=== PATIENT | female | born 1945 | race Caucasian/White ===

== ENCOUNTER 2022-04-22 19:36 | Inpatient (IN) | payer OTHER, MEDICAID ==
[~2022-04-22] VITALS: Ht 154.9 cm; Wt 84.5 kg
[~2022-04-22 19:36] MED LIST: AMLO-489 PO; ARIP2TAB PO; ASPI81CH43 PO; ATEN-60 PO; CEPH-37 PO; CLOP75TA28 PO; DESI25TA PO; LISI-285 PO; PAR20T PO; POTA10TA51 PO; PRAV20TA3 PO
[2022-04-22] MEDS ORDERED: FUROSEMIDE 20 MG/2 ML VIAL IV ONE (20:00)
[2022-04-22 20:21] LABS: Basophils # (auto) 0.1 10 ^3/uL (0-0.2); Basophils % (auto) 0.5 % (0.0-2.0); Eosinophils # (auto) 0.2 10 ^3/uL (0-0.8); Eosinophils % (auto) 1.5 % (0.0-7.0); Hematocrit 47.3 % (36.0-46.0); Hemoglobin 15.8 g/dL (12.2-16.2); Lymphocytes # (auto) 6.3 10 ^3/uL (0.4-5.4); Lymphocytes % (auto) 48.9 % (10.0-50.0); Mean Corpuscular Hemoglobin 30.3 pg (28.0-32.0); Mean Corpuscular Hgb Conc. 33.5 g/dL (32.0-36.0); Mean Corpuscular Volume 90.6 fL (80.0-100.0); Monocytes # (auto) 0.5 10 ^3/uL (0-1.3); Monocytes % (auto) 3.7 % (0.0-12.0); Neutrophils # (auto) 5.8 10 ^3/uL (1.6-8.6); Neutrophils % (auto) 45.4 % (37.0-80.0); Nucleated Red Blood Cells % 0.1 %; Red Blood Cells 5.23 10^6/uL (4.0-5.20); Red Cell Distribution Width 14.3 % (11.8-14.3); White Blood Cell 12.8 10^3/uL (4.4-10.8)
[2022-04-22 20:29] LABS: Albumin 3.5 g/dL (3.4-5.0); Calcium 8.7 mg/dL (8.5-10.1); Magnesium 2.2 mg/dL (1.6-2.6); Potassium 4.2 mmol/L (3.5-5.1)
[2022-04-22 20:31] LABS: INR 0.93 (0.9-1.15); Partial Thromboplastin Time 23.3 sec (24.6-33.4)
[2022-04-22 20:33] LABS: BUN/Creatinine Ratio 17.9; Bilirubin, Total 0.4 mg/dL (0.2-1.0); Total Protein 7.1 g/dL (6.4-8.2)
[2022-04-22] MEDS ORDERED: HEPARIN SODIUM (PORCINE) 5000 UNITS/ML 1ML VIAL IV ONE (21:00)
[2022-04-22] MEDS ORDERED: HEPARIN DRIP/D5W 100UNITS/ML 250 ML IV SCH (21:00)
[2022-04-22 22:39] LABS: Urine Bacteria FEW /hpf (None Seen); Urine Blood Negative /uL (Negative); Urine Hyaline Cast FEW /lpf (0 - 2); Urine Specific Gravity 1.007 (1.001-1.035); Urine WBC 55 /hpf (0 - 5)
[2022-04-22 23:22] VITALS: BP 118/76
[2022-04-22] MEDS ORDERED: AZITHROMYCIN 500MG/ 250ML 250 ML IV ONE (23:30)
[2022-04-22] MEDS ORDERED: cefTRIAXone 1GM/50ML D5W 50 ML IV ONE (23:30)
[2022-04-22] MEDS ORDERED: GELATIN 1 SPONGE SIZE 50 TOP ONE (23:31)
[2022-04-22 23:47] VITALS: BP 134/98
[2022-04-23] VITALS (12 sets, daily range): BP systolic 103–154; BP diastolic 57–95
[2022-04-23] MEDS ORDERED: DexAMETHasone SOD PHOS 10MG/1ML VIAL INJ IV ONE (00:15)
[2022-04-23] MEDS ORDERED: diphenhdrAMINE HCL 50 MG/1 ML VL IV ONE (00:15)
[2022-04-23] MEDS ORDERED: DEXTROSE (50%) 50ML SYRG IV PRN ×2 (00:45→12:45)
[2022-04-23] MEDS ORDERED: IPRATROPIUM BROM 0.5 MG/2.5ML INH SOL NEB PRN (00:45)
[2022-04-23] MEDS ORDERED: ALBUTEROL SULF 2.5 MG/0.5ML(0.5%) NEB SOLN NEB PRN (00:45)
[2022-04-23] MEDS ORDERED: HYDROcodone-ACET 5/325MG TAB PO PRN (00:45)
[2022-04-23] MEDS ORDERED: DOCUSATE SOD 100 MG CAP PO PRN (00:45)
[2022-04-23] MEDS ORDERED: ONDANSETRON HCL 4 MG/2 ML VIAL IV PRN (00:45)
[2022-04-23] MEDS ORDERED: hydrALAZINE HCL 20 MG/ML VL IV PRN (02:30)
[2022-04-23 03:40] LABS: INR 0.98 (0.9-1.15); Partial Thromboplastin Time 33.2 sec (24.6-33.4)
[2022-04-23] MEDS ORDERED: HEPARIN SODIUM (PORCINE) 5000 UNITS/ML 1ML VIAL IV ONE (04:45)
[2022-04-23] MEDS ORDERED: MORPHINE SULFATE INJ 2 MG/ml SYRG IV PRN (04:45)
[2022-04-23] MEDS ORDERED: NITROGLYCERIN 0.4 MG SL TAB SL PRN (04:45)
[2022-04-23] MEDS ORDERED: HEPARIN DRIP/D5W 100UNITS/ML 250 ML IV SCH (04:45)
[2022-04-23 05:15] LABS: Basophils # (auto) 0 10 ^3/uL (0-0.2); Basophils % (auto) 0.2 % (0.0-2.0); Eosinophils # (auto) 0 10 ^3/uL (0-0.8); Hematocrit 47.9 % (36.0-46.0); Hemoglobin 15.7 g/dL (12.2-16.2); Lymphocytes # (auto) 1.8 10 ^3/uL (0.4-5.4); Mean Corpuscular Hemoglobin 29.9 pg (28.0-32.0); Mean Corpuscular Hgb Conc. 32.8 g/dL (32.0-36.0); Mean Corpuscular Volume 91.2 fL (80.0-100.0); Monocytes # (auto) 0.2 10 ^3/uL (0-1.3); Monocytes % (auto) 1.9 % (0.0-12.0); Neutrophils # (auto) 9.3 10 ^3/uL (1.6-8.6); Neutrophils % (auto) 81.9 % (37.0-80.0); Red Blood Cells 5.25 10^6/uL (4.0-5.20); Red Cell Distribution Width 14.2 % (11.8-14.3); White Blood Cell 11.3 10^3/uL (4.4-10.8)
[2022-04-23] MEDS: SODIUM CHLOR 0.9% PF (SALINE LOCK) 10ML VIAL/SYR IV SCH ×2 (06:10→21:47)
[2022-04-23] MEDS: ACCU-CHEK COMFORT CURVE STRIP VI SCH ×4 (06:33→21:48)
[2022-04-23] MEDS: InsuLIN REG 1unit/0.01ml Soln (100units/ml) SC SCH ×4 (06:35→22:00)
[2022-04-23 06:44] LABS: Alanine Aminotransferase 45 U/L (13-56); Albumin 3.1 g/dL (3.4-5.0); Alkaline Phosphatase 60 U/L (45-117); Anion Gap 11 (5-15); Aspartate Aminotransferase 74 U/L (15-37); BUN/Creatinine Ratio 28.6; Bilirubin, Total 0.4 mg/dL (0.2-1.0); Blood Urea Nitrogen 26 mg/dL (7-18); Calcium 8.2 mg/dL (8.5-10.1); Carbon Dioxide 21 mmol/L (21-32); Chloride 106 mmol/L (98-107); GFR African American 77 mL/min; GFR Non-African American 64 mL/min; Glucose 183 mg/dL (74-106); Potassium 4.9 mmol/L (3.5-5.1); Sodium 138 mmol/L (136-145); Total Protein 7.6 g/dL (6.4-8.2)
[2022-04-23] MEDS ORDERED: AZITHROMYCIN 500MG/ 250ML 250 ML IV SCH (10:00)
[2022-04-23] MEDS ORDERED: levoFLOXacin 500MG 100 ML IV SCH (10:00)
[2022-04-23] MEDS ORDERED: ONDANSETRON HCL 4 MG/2 ML VIAL IV ONE (10:30)
[2022-04-23] MEDS: ASPirin 81 mg TAB PO SCH (10:32)
[2022-04-23 11:49] LABS: Cholesterol 178 mg/dL (< 200); HDL Cholesterol 47 mg/dL (40-59); LDL Cholesterol 122 mg/dL (< 100); Triglycerides 93 mg/dL (< 150)
[2022-04-23 11:52] LABS: Partial Thromboplastin Time 73.9 sec (24.6-33.4)
[2022-04-23] MEDS ORDERED: fentaNYL CITRATE 100 MCG/2 ML VL ONE (12:21)
[2022-04-23] MEDS ORDERED: HEPARIN SODIUM (PORCINE) 5000 UNITS/ML 1ML VIAL ONE (12:21)
[2022-04-23] MEDS ORDERED: VERAPAMIL 2.5MG/ML INJ 2ML VIAL IV ONE (12:21)
[2022-04-23] MEDS ORDERED: ANGIOMAX 250 MG VIAL IV ONE (12:21)
[2022-04-23] MEDS ORDERED: LIDOCAINE 2%HCL (LOCAL ANESTH.) INJ 10ml MDV ONE (12:22)
[2022-04-23] MEDS ORDERED: SODIUM CHL 0.9% 0 ML ONE (12:22)
[2022-04-23] MEDS ORDERED: MIDAZOLAM HCL 2MG/2ML 2ml VIAL (1mg/ml) ONE (12:22)
[2022-04-23] MEDS ORDERED: IODIXANOL 320MG/ML 100ML BTL IV ONE ×2 (12:23→12:35)
[2022-04-23] MEDS ORDERED: FUROSEMIDE 40 MG/4 ML VIAL IV ONE (12:45)
[2022-04-23] MEDS ORDERED: FUROSEMIDE 20 MG/2 ML VIAL ONE (13:14)
[2022-04-23] MEDS ORDERED: methylPREDNISolone SOD SUCC 40 MG/ML VL IV SCH (14:00)
[2022-04-23] MEDS: ACETAMINOPHEN 325 MG TAB PO PRN (14:30)
[2022-04-23] MEDS ORDERED: InsuLIN REG 1unit/0.01ml Soln (100units/ml) SC SCH (22:00)
[2022-04-23] MEDS: ATORVASTATIN 20 MG TAB PO SCH (22:13)
[2022-04-24 05:00] VITALS: BP 109/55
[2022-04-24] MEDS: SODIUM CHLOR 0.9% PF (SALINE LOCK) 10ML VIAL/SYR IV SCH ×3 (06:08→20:48)
[2022-04-24] MEDS: ACCU-CHEK COMFORT CURVE STRIP VI SCH ×4 (06:08→20:48)
[2022-04-24] MEDS: InsuLIN REG 1unit/0.01ml Soln (100units/ml) SC SCH ×4 (06:10→20:55)
[2022-04-24 06:21] LABS: Potassium 3.7 mmol/L (3.5-5.1)
[2022-04-24 06:25] LABS: Albumin 3.4 g/dL (3.4-5.0); BUN/Creatinine Ratio 34.7; Calcium 8.9 mg/dL (8.5-10.1)
[2022-04-24 06:27] LABS: Basophils # (auto) 0 10 ^3/uL (0-0.2); Basophils % (auto) 0.3 % (0.0-2.0); Bilirubin, Total 0.8 mg/dL (0.2-1.0); Eosinophils # (auto) 0 10 ^3/uL (0-0.8); Eosinophils % (auto) 0.1 % (0.0-7.0); Hematocrit 44.4 % (36.0-46.0); Lymphocytes # (auto) 3.1 10 ^3/uL (0.4-5.4); Lymphocytes % (auto) 24.9 % (10.0-50.0); Mean Corpuscular Hemoglobin 30.3 pg (28.0-32.0); Mean Corpuscular Hgb Conc. 33.8 g/dL (32.0-36.0); Mean Corpuscular Volume 89.6 fL (80.0-100.0); Monocytes # (auto) 0.9 10 ^3/uL (0-1.3); Monocytes % (auto) 7.2 % (0.0-12.0); Neutrophils # (auto) 8.3 10 ^3/uL (1.6-8.6); Neutrophils % (auto) 67.5 % (37.0-80.0); Nucleated Red Blood Cells % 0.2 %; Red Blood Cells 4.95 10^6/uL (4.0-5.20); Red Cell Distribution Width 14.1 % (11.8-14.3); Total Protein 6.8 g/dL (6.4-8.2); White Blood Cell 12.3 10^3/uL (4.4-10.8)
[2022-04-24 08:44] VITALS: BP 138/61
[2022-04-24] MEDS: cefTRIAXone 1GM/50ML D5W 50 ML IV SCH (09:50)
[2022-04-24] MEDS: ASPirin 81 mg TAB PO SCH (09:51)
[2022-04-24] MEDS: FUROSEMIDE 40 MG/4 ML VIAL IV SCH (09:51)
[2022-04-24] MEDS ORDERED: AZITHROMYCIN 250 MG TAB PO SCH (10:00)
[2022-04-24] MEDS ORDERED: levoFLOXacin 250MG 50 ML IV SCH (10:00)
[2022-04-24] MEDS ORDERED: LISINOPRIL 5 MG TAB PO ONE (10:45)
[2022-04-24] MEDS ORDERED: CARVEDILOL 3.125 MG TAB PO ONE (10:45)
[2022-04-24 13:00] VITALS: BP 127/55
[2022-04-24 17:00] VITALS: BP 122/65
[2022-04-24] MEDS: ATORVASTATIN 20 MG TAB PO SCH (20:40)
[2022-04-24] MEDS: CARVEDILOL 3.125 MG TAB PO SCH (20:41)
[2022-04-24 22:00] VITALS: BP 96/64
[2022-04-24] MEDS: ACETAMINOPHEN 325 MG TAB PO PRN (22:34)
[2022-04-25 05:00] VITALS: BP 103/61
[2022-04-25] MEDS: SODIUM CHLOR 0.9% PF (SALINE LOCK) 10ML VIAL/SYR IV SCH (05:38)
[2022-04-25] MEDS: InsuLIN REG 1unit/0.01ml Soln (100units/ml) SC SCH ×2 (05:38→11:30)
[2022-04-25] MEDS: ACCU-CHEK COMFORT CURVE STRIP VI SCH ×2 (05:39→11:30)
[2022-04-25 06:12] LABS: Calcium 8.8 mg/dL (8.5-10.1); Potassium 3.4 mmol/L (3.5-5.1)
[2022-04-25] MEDS ORDERED: EMPAGLIFLOZIN 10 MG TAB PO SCH (07:00)
[2022-04-25 08:00] VITALS: BP 126/61
[2022-04-25] MEDS ORDERED: LISINOPRIL 5 MG TAB PO SCH (10:00)
[2022-04-25] MEDS: FUROSEMIDE 40 MG/4 ML VIAL IV SCH (10:04)
[2022-04-25] MEDS: cefTRIAXone 1GM/50ML D5W 50 ML IV SCH (10:04)
[2022-04-25] MEDS: ASPirin 81 mg TAB PO SCH (10:04)
[2022-04-25] MEDS: CARVEDILOL 3.125 MG TAB PO SCH (10:05)
[2022-04-25] MEDS ORDERED: CAR3125T PO (11:54)
[2022-04-25] MEDS ORDERED: FURO1TAB31 PO (11:54)
[2022-04-25] MEDS ORDERED: POTA-220 PO (11:54)
[2022-04-25] MEDS ORDERED: LISI-275 PO (11:54)
[2022-04-25] MEDS ORDERED: ASPI-325 PO (11:54)
[2022-04-25] MEDS ORDERED: EMPA1TAB PO (11:54)
[2022-04-25] MEDS ORDERED: ATOR20TA50 PO (11:54)
[2022-04-25 12:00] VITALS: BP 141/97
[2022-04-25] MEDS ORDERED: POTASSIUM CHL 20 Meq TABLET PO ONE (12:30)
[2022-04-25 13:34] VITALS: BP 138/61
== END 2022-04-25 15:30 | disposition home or self-care (01) | DRG 280 ==
LOC: ER 19:36 → EDBD 19:36 → TELE 04-23 04:35 → TELE-EAST 04-23 17:05
PROVIDERS: ADMIT Nurse Practitioner Family; ATTEND Internal Medicine
PROC: 4A023N7 Measurement of Cardiac Sampling and Pressure, Left Heart, Percutaneous Approach (ICD-10-PCS; principal; 2022-04-23)
PROC: B211YZZ Fluoroscopy of Multiple Coronary Arteries using Other Contrast (ICD-10-PCS; 2022-04-23)
PROC: B215YZZ Fluoroscopy of Left Heart using Other Contrast (ICD-10-PCS; 2022-04-23)
DX: I21.4 Non-ST elevation (NSTEMI) myocardial infarction (principal); I50.21 Acute systolic (congestive) heart failure; J96.01 Acute respiratory failure with hypoxia; N39.0 Urinary tract infection, site not specified; I51.81 Takotsubo syndrome; J44.0 Chronic obstructive pulmonary disease with (acute) lower respiratory infection; R65.10 Systemic inflammatory response syndrome (SIRS) of non-infectious origin without acute organ dysfunction; E11.65 Type 2 diabetes mellitus with hyperglycemia; E78.5 Hyperlipidemia, unspecified; N18.9 Chronic kidney disease, unspecified; E11.22 Type 2 diabetes mellitus with diabetic chronic kidney disease; D72.829 Elevated white blood cell count, unspecified; E66.9 Obesity, unspecified; I25.10 Atherosclerotic heart disease of native coronary artery without angina pectoris; J44.9 Chronic obstructive pulmonary disease, unspecified; Z20.822 Contact with and (suspected) exposure to COVID-19; Z79.899 Other long term (current) drug therapy
CPT/HCPCS: 36415; 36600; 71045; 71275; 80048; 80053; 80061; 81001; 82805; 82962; 83036; 83735; 83880; 84443; 84484; 85025; 85610; 85730; 87426; 87804; 93005; 93306; 93458; 94660; 96365; 96366; 96367; 96368; 96372; 96375; 96376; 97116; 97163; 97530; 99152; 99291; G0378; J0696; J1100; J1815; J1956; J2001; J2250; Q9967